=== PATIENT | female | born 1955 | race Caucasian/White ===

== ENCOUNTER 2017-01-11 09:06 | Emergency (ER) | payer SELFPAY ==
[~2017-01-11] VITALS: Ht 162.6 cm; Wt 73.8 kg
[~2017-01-11 09:06] MED LIST: BISACODYL5 MG PO; CITRATE OF MAG296 ML PO; DIAZEPAM5 MG PO; DOCUSATE SODIU100 MG PO; ENERGY VITAMIN PO; FLEXERIL10 MG PO; FLEXERIL5 MG PO; GABAPENTIN300 MG PO; HAIR, SKIN & N1 EAC1 PO; HYDROCODON-ACE1 EA12 PO; HYDROCODONE; MIRALAX255 GM PO; MOBIC7.5 MG PO; MOTRIN600 MG PO; NAPROSYN375 MG PO; NAPROSYN500 MG PO; NEXIUM20 MG PO; NEXIUM40 MG PO; NOHOMEMEDS; NORCO 7.5/321 TABLET PO; OXYCODONE-APAP1 EACH PO; PERCOCET 5/31 TABLET PO; PHENTERMINE H37.5 MG PO; PREDNISONE10 M1 PO; ROBAXIN500 MG PO; STRESS B1 EACH PO; TOPAMAX25 MG PO; VALACYCLOVIR1000 MG PO; VALIUM5 MG PO; [UNRECOGNIZED DRUG - REMARK]
[2017-01-11 09:45] LABS: HEMATOCRIT 39.5 % (36.0-46.0); MCH 29.4 PG (29.0-34.0); MCHC 33.4 G/DL (30.0-36.0); MEAN PLAT.VOLUME 8.6 uM^3 (9.5-12.4); PLATELET COUNT 298 K/uL (156-360); RBC DIS.WIDTH-SD 40.4 % (39-53); RED BLOOD COUNT 4.49 M/uL (3.80-5.20); WHITE BLOOD COUNT 5.5 K/uL (4.1-10.2)
[2017-01-11 10:07] LABS: CHLORIDE 108 mEq/L (99-109); POTASSIUM 4.4 mEq/L (3.7-5.4); SODIUM 141 mEq/L (136-147)
[2017-01-11 10:09] LABS: GLUCOSE 103 mg/dL (70-99)
[2017-01-11 10:11] LABS: ANION GAP 7 MEQ/L (2-14); TOTAL BILIRUBIN 0.6 mg/dL (0.0-1.0)
[2017-01-11 10:13] LABS: ALKALINE PHOSPHATASE 68 IU/L (3-129); GFR ESTIMATE (CALCULATED) > 59 mL/min/
[2017-01-11 10:14] LABS: UREA NITROGEN (BUN) 12 mg/dL (9-23)
[2017-01-11 10:17] LABS: LIPASE 7 U/L (1.0-51.0)
[2017-01-11 10:25] LABS: ADD MIUA? YES; BILIRUBIN NEGATIVE; BLOOD NEGATIVE; COLOR YELLOW ((YELLOW)); GLUCOSE (STRIP) NEGATIVE; KETONES NEGATIVE; LEUKOCYTES SMALL; NITRITE NEGATIVE; PROTEIN (STRIP) NEGATIVE; SPECIFIC GRAVITY 1.005 (1.000-1.030); UROBILINOGEN 0.2 MG/DL (0.2-1.0)
[2017-01-11 10:27] LABS: BACTERIA NONE SEEN /HPF; EPITHELIAL CELLS RARE /HPF; MUCUS NONE SEEN /LPF; RED BLOOD CELLS 0-5 /HPF (0-5); UCUL ADDED? NO; WHITE BLOOD CELLS 0-5 /HPF (0-5)
[2017-01-11] MEDS ORDERED: MOTRIN600 MG PO (13:03)
[2017-01-11] MEDS ORDERED: NORCO 5/3251 TABLET PO (13:03)
[2017-01-11 13:19] VITALS: BP 118/73
[2017-01-13 13:16] LABS: CHLAMYDIA TRACHOMATIS NEGATIVE; NEISSERIA GONORRHOEAE NEGATIVE
== END 2017-01-11 13:20 | disposition home or self-care (01) ==
LOC: EME 09:06
PROVIDERS: Physician Assistant
DX: R10.2 Pelvic and perineal pain (principal); G89.29 Other chronic pain
CPT/HCPCS: 80053; 81003; 83690; 85027; 87210; 87491; 87591; 99281; 99284

== ENCOUNTER 2017-05-03 07:18 | Day surgery (SDC) | payer OTHER ==
[~2017-05-03] VITALS: Ht 160 cm; Wt 73.9 kg
[~2017-05-03 07:18] MED LIST changes: +LOMAIRA8 MG PO; +NORCO 5/3251 TABLET PO; +PHENTERMINE HCL15 MG PO; +TYLENOL EXTRA500 MG PO
[2017-05-03 08:15] LABS: EOSINOPHIL (%) 2.6 % (0-5); EOSINOPHIL COUNT 0.1 K/uL (0-0.3); HEMATOCRIT 41.3 % (36.0-46.0); IMMATURE GRANULOCYTE (%) 0.2 % (0.0-0.7); INSTRUMENT ABS NEUTROPHIL CT 2.7 K/uL; LYMPHOCYTE COUNT 1.7 K/uL (1.0-2.8); MCH 29.6 PG (29.0-34.0); MCHC 32.9 G/DL (30.0-36.0); MCV 89.8 FL (83-99); MEAN PLAT.VOLUME 8.4 uM^3 (9.5-12.4); MONOCYTE (%) 7.3 % (3-12); MONOCYTE COUNT 0.4 K/uL (0-0.8); NEUTROPHIL (%) 55.1 % (45-76); NEUTROPHIL COUNT 2.7 K/uL (1.8-6.4); PLATELET COUNT 243 K/uL (156-360); RBC DIS.WIDTH-SD 42.8 % (39-53); WHITE BLOOD COUNT 4.9 K/uL (4.1-10.2)
[2017-05-03 08:23] VITALS: BP 141/91
[2017-05-03 08:40] LABS: CHLORIDE 109 mEq/L (99-109); POTASSIUM 3.5 mEq/L (3.7-5.4); SODIUM 141 mEq/L (136-147)
[2017-05-03 08:43] LABS: GLUCOSE 92 mg/dL (70-99)
[2017-05-03 08:44] LABS: ANION GAP 8 MEQ/L (2-14)
[2017-05-03 08:45] LABS: TOTAL BILIRUBIN 0.2 mg/dL (0.0-1.0)
[2017-05-03 08:46] LABS: ALKALINE PHOSPHATASE 54 IU/L (3-129); GFR ESTIMATE (CALCULATED) > 59 mL/min/
[2017-05-03 08:47] LABS: UREA NITROGEN (BUN) 15 mg/dL (9-23)
[2017-05-03] MEDS ORDERED: ENDOCET 5-3251 EACH PO (10:43)
[2017-05-03] MEDS ORDERED: IBUPROFEN800 MG PO (10:43)
[2017-05-03 11:37] VITALS: BP 111/66
[2017-05-03 12:26] VITALS: BP 108/72
[2017-05-03 13:30] VITALS: BP 103/72
== END 2017-05-03 13:39 | disposition home or self-care (01) ==
LOC: SDC 07:18 → EDSTATUS 15:22 → 2SOUTH 15:22 → SDC 15:24
PROVIDERS: Obstetrics & Gynecology
DX: D27.0 Benign neoplasm of right ovary (principal); G89.29 Other chronic pain; M54.5 Low back pain; K21.9 Gastro-esophageal reflux disease without esophagitis; Z88.6 Allergy status to analgesic agent; Z82.49 Family history of ischemic heart disease and other diseases of the circulatory system
CPT/HCPCS: 80053; 85025; 86900; 86901; 88305; J0330; J0690; J1100; J1885; J2250; J2405; J2710; J3010

== ENCOUNTER → 2017-10-15 | Emergency (ER) | payer SELFPAY ==
[~2017-10-15] VITALS: Ht 160 cm; Wt 73.9 kg
[~2017-10-15] MED LIST changes: +ENDOCET 5-3251 EACH PO; +IBUPROFEN800 MG PO; +TYLENOL WITH C1 EACH PO
[2017-10-15 21:15] VITALS: BP 149/94
== END | disposition home or self-care (01) ==
LOC: EME 16:08
DX: M25.551 Pain in right hip (principal); M25.511 Pain in right shoulder; M25.512 Pain in left shoulder; G89.29 Other chronic pain
CPT/HCPCS: 73501; 99281; 99284

== ENCOUNTER 2017-11-03 22:02 | Emergency (ER) | payer OTHER ==
[~2017-11-03] VITALS: Ht 154.9 cm; Wt 75.3 kg
[2017-11-03 22:37] LABS: ADD MIUA? YES; BILIRUBIN NEGATIVE; BLOOD NEGATIVE; COLOR STRAW ((YELLOW)); GLUCOSE (STRIP) NEGATIVE; KETONES NEGATIVE; LEUKOCYTES SMALL; NITRITE NEGATIVE; PROTEIN (STRIP) NEGATIVE; SPECIFIC GRAVITY 1.005 (1.000-1.030); UROBILINOGEN 0.2 MG/DL (0.2-1.0)
[2017-11-03 22:40] LABS: BACTERIA NONE SEEN /HPF; EPITHELIAL CELLS RARE /HPF; MUCUS NONE SEEN /LPF; RED BLOOD CELLS 0-5 /HPF (0-5); UCUL ADDED? NO; WHITE BLOOD CELLS 0-5 /HPF (0-5)
[2017-11-03 22:57] LABS: HEMATOCRIT 38.4 % (36.0-46.0); MCH 30.9 PG (29.0-34.0); MCHC 34.1 G/DL (30.0-36.0); MCV 90.6 FL (83-99); PLATELET COUNT 245 K/uL (156-360); RBC DIS.WIDTH-CV 12.4 % (11.8-14.6); RBC DIS.WIDTH-SD 40.9 % (39-53); RED BLOOD COUNT 4.24 M/uL (3.80-5.20); WHITE BLOOD COUNT 7.7 K/uL (4.1-10.2)
[2017-11-03 23:07] LABS: CHLORIDE 108 mEq/L (99-109); POTASSIUM 3.9 mEq/L (3.7-5.4); SODIUM 142 mEq/L (136-147)
[2017-11-03 23:10] LABS: GLUCOSE 106 mg/dL (70-99)
[2017-11-03 23:11] LABS: ANION GAP 10 MEQ/L (2-14)
[2017-11-03 23:12] LABS: TOTAL BILIRUBIN 0.3 mg/dL (0.0-1.0)
[2017-11-03 23:13] LABS: ALKALINE PHOSPHATASE 62 IU/L (3-129); GFR ESTIMATE (CALCULATED) > 59 mL/min/
[2017-11-03 23:14] LABS: UREA NITROGEN (BUN) 12 mg/dL (9-23)
[2017-11-03] MEDS ORDERED: VALIUM5 MG PO (23:26)
[2017-11-03] MEDS ORDERED: MEDROL DOSEPAK4 MG PO (23:26)
[2017-11-03 23:46] VITALS: BP 145/109
== END 2017-11-03 23:46 | disposition home or self-care (01) ==
LOC: EME 22:02
DX: M54.16 Radiculopathy, lumbar region (principal); K21.9 Gastro-esophageal reflux disease without esophagitis; F32.9 Major depressive disorder, single episode, unspecified; G43.909 Migraine, unspecified, not intractable, without status migrainosus; Z88.6 Allergy status to analgesic agent
CPT/HCPCS: 80053; 81003; 85027; 99281; 99284; J1885